=== PATIENT | female | born 1975 | race African-American/Black ===

== ENCOUNTER 2018-01-19 13:39 | Inpatient (IN) ==
[2018-01-19] MEDS ORDERED: PROPOFOL 200 MG/20 ML VIAL IV ONE (13:59)
[2018-01-19 14:46] LABS: Basophils % 0.3 % (0.0-0.8); Eosinophils # 0.2 10*3/uL (0.0-0.87); Eosinophils % 1.7 % (0.00-10.9); Hematocrit 30.1 VOL% (35.7-47.0); Hemoglobin 9.6 GM/DL (12.0-16.0); Immature Granulocytes % 0.2 %; Immature Granulocytes Absolute 0.02 #; Lymphocytes # 1.5 10*3/uL (1.4-4.0); Lymphocytes % 16.6 % (21.3-54.2); Mean Corpuscular HGB Conc 31.9 GM/DL (32-36); Mean Corpuscular Hemoglobin 31 PG (27-34); Mean Corpuscular Volume 96.5 FL (87-102); Mean Platelet Volume 10.1 FL (9.6-12.0); Monocytes # 0.7 10*3/uL (0.11-0.8); Monocytes % 7.4 % (1.7-12.7); Neutrophils # 6.5 10*3/uL (1.4-7.4); Neutrophils % 73.8 % (38.7-73.9); Platelet Count 227 T/CUMM (130-400); Red Blood Count 3.12 MC/CUMM (3.8-5.5); Red Cell Distribution Width 12.4 % (9.3-17.3); White Blood Count 8.8 T/CUMM (4-12)
[2018-01-19 15:21] LABS: Calcium 7.8 MG/DL (8.5-10.1); Osmolality,Calculated 281.4 MOS/KG (273-304); Potassium 4.3 MMOL/L (3.5-5.1)
[2018-01-19] MEDS ORDERED: HYDROmorphone 2 MG/1 ML VIAL IV STA (15:22)
[2018-01-19] MEDS ORDERED: tiZANidine 4 MG TABLET PO PRN (17:02)
[2018-01-19] MEDS ORDERED: AMITRIPTYLINE 25 MG TABLET PO PRN (17:02)
[2018-01-19] MEDS ORDERED: HYDROmorphone 2 MG/1 ML VIAL IV PRN (17:04)
[2018-01-19] MEDS ORDERED: oxyCODONE IR 5 MG TABLET PO PRN (17:04)
[2018-01-19] MEDS ORDERED: ONDANSETRON 4 MG/2 ML VIAL IV PRN (17:05)
[2018-01-19] MEDS ORDERED: MAGNESIUM HYDROXIDE SUSP 30 ML UDCUP PO PRN (17:05)
[2018-01-19 17:33] LABS: Partial Thromboplastin Time 27.4 SECS (0-40)
[2018-01-19 19:34] LABS: Apearance,Urine CLEAR (Clear); Bilirubin,Urine Negative (Negative); Blood, Urine Negative (Negative); Glucose,Urine (UA) Negative (Negative); Ketones,Urine Negative (Negative); Nitrite,Urine Negative (Negative); Protein,Urine Negative; RBC,Urine 2 /HPF (0-4); Squamous Epithelial Cell,Urine Occasional /HPF (0-10); Urine Color Yellow (Yellow); Urine Urobilinogen < 2.0 EU/DL (0.2-1.0); WBC,Urine 1 /HPF (0-6)
[2018-01-19] MEDS: HYDROmorphone 2 MG/1 ML VIAL IV PRN (19:38)
[2018-01-19] MEDS: LACTATED RINGERS 1,000 ML IV SCH (19:39)
[2018-01-19] MEDS: DULoxetine 30 MG CAPSULE PO SCH (23:37)
[2018-01-19] MEDS: TOPIRAMATE 25 MG TABLET PO SCH (23:37)
[2018-01-19] MEDS: GABAPENTIN 600 MG TABLET PO SCH (23:37)
[2018-01-20] MEDS: HYDROmorphone 2 MG/1 ML VIAL IV PRN ×6 (02:02→23:26)
[2018-01-20] MEDS: LACTATED RINGERS 1,000 ML IV SCH ×3 (04:39→18:44)
[2018-01-20] MEDS ORDERED: hydrALAZINE 20 MG/1 ML VIAL IV PRN (05:55)
[2018-01-20] MEDS ORDERED: CLINDAMYCIN INJ 900 MG in PREMIX 1 EACH IV ONE (06:30)
[2018-01-20 07:49] LABS: Basophils % 0.3 % (0.0-0.8); Eosinophils # 0.2 10*3/uL (0.0-0.87); Eosinophils % 2.6 % (0.00-10.9); Hematocrit 31.9 VOL% (35.7-47.0); Hemoglobin 10.2 GM/DL (12.0-16.0); Immature Granulocytes % 0.3 %; Immature Granulocytes Absolute 0.02 #; Lymphocytes # 1.5 10*3/uL (1.4-4.0); Lymphocytes % 20.6 % (21.3-54.2); Mean Corpuscular Hemoglobin 31 PG (27-34); Mean Corpuscular Volume 95.5 FL (87-102); Mean Platelet Volume 10.2 FL (9.6-12.0); Monocytes # 0.5 10*3/uL (0.11-0.8); Monocytes % 6.6 % (1.7-12.7); Neutrophils # 5.2 10*3/uL (1.4-7.4); Neutrophils % 69.6 % (38.7-73.9); Platelet Count 261 T/CUMM (130-400); Red Blood Count 3.34 MC/CUMM (3.8-5.5); Red Cell Distribution Width 12.5 % (9.3-17.3); White Blood Count 7.4 T/CUMM (4-12)
[2018-01-20 08:14] LABS: Osmolality,Calculated 279.3 MOS/KG (273-304)
[2018-01-20 08:20] LABS: % Iron Saturation 10.6 % (18-50); Ferritin 127.5 ng/ml (8-252)
[2018-01-20 08:28] LABS: Folate 20.5 NG/ML (5.4-24.0); Vitamin B12 433 PG/ML (211-911)
[2018-01-20 09:11] LABS: Sedimentation Rate-Westergren 106 MM/HR (0-20)
[2018-01-20] MEDS ORDERED: BACITRACIN OINT 0.9 GM PACK TOP ONE (10:28)
[2018-01-20] MEDS ORDERED: ROPIVACAINE 0.5% 30 ML VIAL ONE (10:40)
[2018-01-20] MEDS ORDERED: KETOROLAC 30 MG/1 ML VIAL IV PRN (10:45)
[2018-01-20] MEDS: GABAPENTIN 600 MG TABLET PO SCH ×3 (11:01→21:11)
[2018-01-20] MEDS: TOPIRAMATE 25 MG TABLET PO SCH ×2 (11:01→21:09)
[2018-01-20] MEDS: LISINOPRIL 10 MG TABLET PO SCH (11:01)
[2018-01-20] MEDS: CALCIUM (CARBONATE)/VITAMIN D 500 MG-200 UNIT TABLET PO SCH (11:01)
[2018-01-20] MEDS ORDERED: SEVOFLURANE 1 UNIT/15 MINUTE INH ONE (11:19)
[2018-01-20] MEDS ORDERED: MIDAZOLAM 2 MG/2 ML VIAL ONE (11:19)
[2018-01-20] MEDS ORDERED: fentaNYL 100 MCG/2 ML VIAL ONE ×2 (11:19)
[2018-01-20] MEDS ORDERED: PROPOFOL 200 MG/20 ML VIAL IV ONE (11:19)
[2018-01-20] MEDS ORDERED: ONDANSETRON 4 MG/2 ML VIAL ONE ×2 (11:20→11:43)
[2018-01-20] MEDS ORDERED: GLYCOPYRROLATE 0.4 MG/2 ML VIAL ONE (11:20)
[2018-01-20] MEDS ORDERED: NEOSTIGMINE 10 MG/10 ML VIAL ONE (11:20)
[2018-01-20] MEDS ORDERED: ROCURONIUM 100 MG/10 ML VIAL IV ONE (11:20)
[2018-01-20] MEDS ORDERED: LACTATED RINGERS 1,000 ML IV ONE (11:20)
[2018-01-20] MEDS ORDERED: MEPERIDINE 25 MG/1 ML VIAL ONE (11:43)
[2018-01-20] MEDS ORDERED: MEPERIDINE 25 MG/1 ML VIAL IV PRN (11:51)
[2018-01-20] MEDS ORDERED: ONDANSETRON 4 MG/2 ML VIAL IV PRN (11:51)
[2018-01-20 12:39] LABS: Hemoglobin A1 (Alkaline) 97.9 % (96.5-98.5); Hemoglobin A2 (Alkaline) 2.1 % (1.5-3.5)
[2018-01-20] MEDS: oxyCODONE/ACETAMINOPHEN 5-325 MG TABLET PO PRN ×2 (15:08→21:16)
[2018-01-20] MEDS ORDERED: NON-FORMULARY MEDICATION (Oxycodone Hcl/Acetaminophen [Percocet 10-325 Mg Tablet] 1 EACH) PO SCH (15:30)
[2018-01-20] MEDS: CLINDAMYCIN INJ 900 MG in PREMIX 1 EACH IV SCH (16:21)
[2018-01-20] MEDS: DULoxetine 30 MG CAPSULE PO SCH (21:11)
[2018-01-21] MEDS: CLINDAMYCIN INJ 900 MG in PREMIX 1 EACH IV SCH (00:57)
[2018-01-21] MEDS: HYDROmorphone 2 MG/1 ML VIAL IV PRN ×2 (03:08→08:38)
[2018-01-21] MEDS ORDERED: FONDAPARINUX 2.5 MG/0.5 ML SYRINGE SUBCUT SCH (04:46)
[2018-01-21] MEDS: oxyCODONE/ACETAMINOPHEN 5-325 MG TABLET PO PRN ×2 (04:49→10:12)
[2018-01-21 06:25] LABS: Basophils % 0.3 % (0.0-0.8); Eosinophils # 0.2 10*3/uL (0.0-0.87); Eosinophils % 2.4 % (0.00-10.9); Hematocrit 31.2 VOL% (35.7-47.0); Hemoglobin 10.1 GM/DL (12.0-16.0); Immature Granulocytes % 0.1 %; Immature Granulocytes Absolute 0.01 #; Lymphocytes # 2.2 10*3/uL (1.4-4.0); Lymphocytes % 30.9 % (21.3-54.2); Mean Corpuscular HGB Conc 32.4 GM/DL (32-36); Mean Corpuscular Hemoglobin 31 PG (27-34); Mean Corpuscular Volume 95.4 FL (87-102); Mean Platelet Volume 10.9 FL (9.6-12.0); Monocytes # 0.6 10*3/uL (0.11-0.8); Monocytes % 8.3 % (1.7-12.7); Platelet Count 278 T/CUMM (130-400); Red Blood Count 3.27 MC/CUMM (3.8-5.5); Red Cell Distribution Width 12.3 % (9.3-17.3)
[2018-01-21 06:36] LABS: Calcium 8.6 MG/DL (8.5-10.1); Osmolality,Calculated 279.3 MOS/KG (273-304)
[2018-01-21] MEDS: TOPIRAMATE 25 MG TABLET PO SCH (08:36)
[2018-01-21] MEDS: CALCIUM (CARBONATE)/VITAMIN D 500 MG-200 UNIT TABLET PO SCH (08:36)
[2018-01-21] MEDS: GABAPENTIN 600 MG TABLET PO SCH (08:36)
[2018-01-21] MEDS: LISINOPRIL 10 MG TABLET PO SCH (08:37)
[2018-01-21 11:21] VITALS: BP 123/70
== END 2018-01-21 14:15 | disposition home or self-care (01) | DRG 494 ==
LOC: N.ED 13:39 → N.EDINP 17:05 → N.3E 17:57
PROVIDERS: ADMIT Orthopaedic Surgery; ATTEND Orthopaedic Surgery